=== PATIENT | female | born 1970 | race Caucasian/White ===

== ENCOUNTER 2021-02-26 10:01 | Outpatient (RCR) | payer OTHER, SELFPAY | END 2021-03-08 23:59 | LOC: NS 10:01 | PROVIDERS: PCP Internal Medicine | DX: Z71.3 Dietary counseling and surveillance (principal); E66.01 Morbid (severe) obesity due to excess calories; Z68.41 Body mass index [BMI] 40.0-44.9, adult | CPT/HCPCS: 97802 ==

== ENCOUNTER 2021-03-26 10:30 | Outpatient (RCR) | payer OTHER, SELFPAY | END 2021-04-08 23:59 | LOC: NS 10:30 | PROVIDERS: PCP Internal Medicine | DX: Z71.3 Dietary counseling and surveillance (principal); E66.01 Morbid (severe) obesity due to excess calories; Z68.41 Body mass index [BMI] 40.0-44.9, adult | CPT/HCPCS: 97802; 97803 ==

== ENCOUNTER 2021-04-09 12:03 | Outpatient (RCR) | payer OTHER, SELFPAY | END 2021-05-08 23:59 | LOC: NS 12:03 | PROVIDERS: PCP Internal Medicine | DX: Z71.3 Dietary counseling and surveillance (principal); E66.01 Morbid (severe) obesity due to excess calories; Z68.41 Body mass index [BMI] 40.0-44.9, adult | CPT/HCPCS: 97803 ==